=== PATIENT | male | born 1965 | race Caucasian/White ===

== ENCOUNTER → 2016-05-21 | Outpatient (CLI) | payer OTHER ==
[~2016-05-21] MED LIST: MELO7.5T5 PO; OXYC-106 PO; PRLSR20 PO; TIZA4CAP PO
--- NOTE | 2016-05-21 14:17 | DIAGNOSTIC IMAGING REPORT ---
THORACIC SPINE 3 VIEWS ROUTINE CLINICAL HISTORY: THORACIC BACK PAIN COMPARISON STUDY: 05/20/2015 FINDINGS: There is a minimal spinal curvature. The paraspinal line is not displaced. There are mild multilevel degenerative changes. No fractures subluxations or destructive lesions are visualized. There are postsurgical changes in cervical spine. IMPRESSION: Mild multilevel degenerative change. No fractures subluxations or destructive lesions are visualized Electronically signed by: Frank Kunz M.D. 05/21/2016 2:15 PM Dictated Date/Time: 05/21/2016 2:14 PM
== END | disposition home or self-care (01) ==
LOC: C.RADBC 13:37
PROVIDERS: ATTEND Anesthesiology
DX: M54.6 Pain in thoracic spine (principal)

== ENCOUNTER 2018-12-12 05:50 | Observation (INO) ==
[2018-11-23 12:05] LABS: Basophils # (auto) 0.07 K/uL (0-0.2); Basophils % (auto) 0.6 %; Eosinophils # (auto) 0.23 K/uL (0-0.5); Eosinophils % (auto) 1.9 %; Hematocrit (blood only) 42.9 % (42-52); Hemoglobin 14.3 g/dL (14.0-18.0); Immature Granulocytes # (auto) 0.12 K/uL (0.00-0.02); Lymphocytes # (auto) 4.21 K/uL (1.2-3.4); Lymphocytes % (auto) 34.7 %; Mean Corpuscular Hemoglobin 32.2 pg (25-34); Mean Corpuscular Hgb Conc 33.3 g/dL (32-36); Mean Corpuscular Volume 96.6 fL (80-100); Mean Platelet Volume 9.5 fL (7.4-10.4); Monocytes # (auto) 1.38 K/uL (0.11-0.59); Monocytes % (auto) 11.4 %; Neutrophils # (auto) 6.12 K/uL (1.4-6.5); Neutrophils % (auto) 50.4 %; Platelet Count 389 K/uL (130-400); RDW Coefficient of Variation 13.2 % (11.5-14.5); RDW Standard Deviation 46.1 fL (36.4-46.3); Red Blood Count 4.44 M/uL (4.7-6.1); White Blood Count 12.13 K/uL (4.8-10.8)
[2018-11-23 12:20] LABS: Partial Thromboplastin Ratio 0.9; Partial Thromboplastin Time 25.7 Seconds (21.0-31.0); Prothrombin Time 10.1 Seconds (9.0-12.0)
[2018-11-23 12:49] LABS: BUN Creatinine Ratio 18.2 (10-20); Blood Urea Nitrogen 15 mg/dl (7-18); Calcium 9.3 mg/dl (8.5-10.1); Carbon Dioxide 27 mmol/L (21-32); Chloride 107 mmol/L (98-107); Est GFR (African American) 115.9; Glucose 90 mg/dl (70-99); Sodium 140 mmol/L (136-145)
--- NOTE | 2018-11-24 13:53 | Anesthesiology Consultation ---
Date of Service November 24, 2018 Assessment & Plan (1) Encounter for pre-operative examination: Chart Review Chart Review: Acceptable Risk for Surgery and Patient NOT seen in Pre Admission Testing History Surgery Operation Date: 12/12/18 07:30 Proposed Procedures p C6-C7 Anterior Cervical Discectomy and Fusion with Iliac Crest Bone Graft - Rosalio Bonilla DO Height/Weight Height: 5 ft 7 in Weight: 65.771 kg Allergies Allergy/AdvReac Type Severity Reaction Status Date / Time nkda Allergy Unknown None Uncoded 11/24/18 12:31 Medications Home Medications Medication Instructions Recorded Confirmed Last Taken meloxicam 15 mg tablet 15 mg PO QAM 10/05/18 11/24/18 Unknown omeprazole magnesium 20 mg 20 mg PO QAM 10/05/18 11/24/18 Unknown tablet,delayed release oxycodone-acetaminophen 10 mg-325 1 tab PO Q4H PRN 10/05/18 11/24/18 Unknown mg tablet tizanidine 4 mg capsule 4 mg PO DAILY PRN cap 10/05/18 11/24/18 Unknown sumatriptan succinate [Imitrex] 100 mg PO UD PRN 11/24/18 11/24/18 Unknown Past Medical History Medical History Cervical facet syndrome Lumbar radiculopathy Acid reflux disease Degenerative disc disease History of migraine headaches Osteoarthritis Scoliosis Spinal stenosis Past Family History Family History Father No problems noted. Mother No problems noted. Past Surgical History Surgical History History of ankle surgery Right; HARDWARE PRESENT History of fusion of cervical spine C5-6; RESTRICTED MVMT LEFT SIDE History of colonoscopy History of repair of left rotator cuff LT History of repair of pectoralis muscle tear RT History of toe surgery RT GREAT TOE History of tonsillectomy History of tooth extraction STOP BANG Total 2 Social History Smoking Status: Current every day smoker tobacco type: cigarettes Smoking cigarettes per day: 1 PPD Do You Dip or Chew Tobacco: No Hx Alcohol Use: No Hx Substance Use: No substance use type: does not use Testing Laboratory Results 11/23/18 10:07 11/23/18 10:07 PT 10.1 Seconds (9.0-12.0) 11/23/18 10:07 INR 1.0 (0.9-1.1) 11/23/18 10:07 APTT 25.7 Seconds (21.0-31.0) 11/23/18 10:07 *Surgeon aware elevated WBC* Electrocardiogram Date: 11/23/18 SB at 56bpm. Chest X-Ray Date: 11/23/18 Findings: + NAD Atherosclerosis of the aortic arch.
--- NOTE | 2018-12-09 11:24 | History and Physical Report ---
DATE OF ADMISSION: 12/12/2018 CHIEF COMPLAINT: Neck pain, upper back pain, shoulder and arm pain, paresthesias and a working diagnosis of an incompetent cervical segment and disk herniation C6-C7. He is here for an anterior cervical discectomy and fusion with iliac crest bone graft C6-C7 cervical spine. PAST MEDICAL HISTORY: Positive for rheumatoid arthritis. No hypertension, COPD, cancer. PAST SURGICAL HISTORY: Neck surgery, shoulder surgery, ankle surgery. ALLERGIES: Negative. SOCIAL HISTORY: . No alcohol. Moderate tobacco. Moderately active. Currently not working. REVIEW OF SYSTEMS: Twelve system review is negative for fevers, sweats, chills. Ears, nose, and throat negative. Denies chest pain, palpitations. No asthma, wheezing, shortness of breath. No nausea, vomiting. He has joint pain, stiffness and cramping. MEDICATIONS: Include meloxicam, oxycodone, propranolol and Imitrex. OBJECTIVE: GENERAL: He is 53. He is 5 feet 7 inches, 150. He is in no terrible distress other than the cervical spine. VITAL SIGNS: Blood pressure 130/80, pulse 80, respirations 16. HEENT: Pupils react to light and accommodation. Ear, nose and throat clear. CARDIAC: Normal S1, S2. No S3. LUNGS: Clear. ABDOMEN: Soft, nontender. MUSCULOSKELETAL: He has decreased range of motion, flexion ____ cervical spine. Pain with rotation. Positive Spurling maneuver and associated triceps weakness. ASSESSMENT: Includes cervical incompetence and cord compression at C6-C7 with degenerative changes. PLAN: Includes an ACDF of cervical spine with iliac crest bone graft.
[2018-12-12] MEDS ORDERED: CEFAZOLIN 2000MG 2,000 MG/15 ML SYR IV SCH (06:00)
[2018-12-12] MEDS ORDERED: LR 15ML/HR IV SCH (06:00)
[2018-12-12] MEDS ORDERED: SODIUM CHLORIDE 0.9% 1,000 ML IV SCH (06:00)
[2018-12-12] MEDS ORDERED: PROPOFOL IV EMULSION 10 MG/ML 20 ML VIAL IV ONE (06:49)
[2018-12-12] MEDS ORDERED: ROCURONIUM BROMIDE 10 MG/ML 5 ML VIAL ONE (06:49)
[2018-12-12] MEDS ORDERED: LARYING-O-JET KIT (LTA) ONE (06:49)
[2018-12-12] MEDS ORDERED: DEXAMETHASONE SOD INJ 4 MG/ML VIAL ONE (06:49)
[2018-12-12] MEDS ORDERED: HYDROmorphone INJ 2 MG/ML SYR/VIAL ONE (06:49)
[2018-12-12] MEDS ORDERED: LIDOCAINE HCL 2% 2 ML VIAL/AMP(20MG/ML) INFIL ONE (06:49)
[2018-12-12] MEDS ORDERED: ONDANSETRON INJ 2 MG/ML 2 ML VIAL ONE (06:49)
[2018-12-12] MEDS ORDERED: MIDAZOLAM HCL 1 MG/ML 2ML VIAL ONE ×2 (06:49→10:00)
[2018-12-12] MEDS ORDERED: BUPIVACAINE/EPINEPHRINE 0.5% MPF 1:200,000 30 ML VIAL ONE (06:55)
[2018-12-12] MEDS ORDERED: BACITRACIN INJ 50,000 UNIT VIAL ONE (06:56)
[2018-12-12] MEDS ORDERED: GELATIN SPONGE SZ 100 ONE (06:56)
[2018-12-12] MEDS ORDERED: THROMBIN FOR SOLN 20000 UNIT KIT ONE (06:56)
--- NOTE | 2018-12-12 07:15 | History & Physical Bridge Note ---
Date of Service December 12, 2018 History & Physical Bridge Note I have examined the patient, reviewed the History & Physical and in the interval since the performance of the History & Physical I have noted the following changes of clinical significance: no changes noted
[2018-12-12] MEDS ORDERED: ATROPINE SULFATE 0.1 MG/ML 10ML SYR IV PRN ×2 (07:24→07:29)
[2018-12-12] MEDS ORDERED: ePHEDrine sulfate 50 MG/ML AMP IV PRN ×2 (07:24→07:29)
[2018-12-12] MEDS ORDERED: NEOSTIGMINE METHYLSULFATE 5 MG/5 ML SYR ONE (08:13)
[2018-12-12] MEDS ORDERED: GLYCOPYRROLATE 0.2 MG/ML VIAL ONE (08:13)
--- NOTE | 2018-12-12 08:58 | Post Operative Brief Note ---
PG Immediate Post Op with CF Date of Surgery December 12, 2018 Pre & Post Diagnosis Operation Date: 12/12/18 07:30 Pre-Op Diagnosis: CERVICAL DISC HERNIATION Post-Op Diagnosis: CERVICAL DISC HERNIATION Procedure Operation Date: 12/12/18 07:30 Actual Procedures p C6-C7 Anterior Cervical Discectomy and Fusion with Iliac Crest Bone Graft(Not Applicable) - Rosalio Bonilla DO Surgeon Rosalio Bonilla DO [employer] Merchant trae Estimated Blood Loss 10 Findings Consistent with Post-Op Diagnosis Specimens Specimen Description: NONE PER SURGEON Drains Dyer Drain Overlapping Procedure I was immediately available: during the entire case.
--- NOTE | 2018-12-12 09:02 | Fluoroscopy Report ---
Cervical SPINE, INTRAOPERATIVE FLUOROSCOPY HISTORY: C6-C7 ACDF. FLUOROSCOPY TIME: 6 seconds. FINDINGS: Intraoperative fluoroscopy was provided for the cervical spine. Single fluoroscopic spot im ages demonstrate anterior cervical discectomy and fusion at C6-C7. There is also a disc space at C5-C 6. The hardware appears intact. IMPRESSION: Fluoroscopy provided for a C6-C7 ACDF. Electronically signed by: Rod Graham M.D. 12/12/2018 9:01 AM
[2018-12-12] MEDS: HYDROmorphone INJ 2 MG/ML SYR/VIAL IV PRN ×4 (09:20→09:45)
[2018-12-12] MEDS ORDERED: MIDAZOLAM HCL 5 MG/ML 1 ML VIAL IV STA (10:03)
--- NOTE | 2018-12-12 10:07 | Anesthesiology Progress Note ---
Date of Service December 12, 2018 Anesthesia Post Procedure Vital Signs Vital Signs: Temp Pulse Pulse Pulse Resp BP BP 12/12/18 09:46 68 14 12/12/18 09:45 71 18 121/80 12/12/18 09:41 73 13 12/12/18 09:40 73 14 138/83 12/12/18 09:37 69 14 127/80 12/12/18 09:35 81 25 H 12/12/18 09:31 77 21 12/12/18 09:30 74 16 140/92 12/12/18 09:26 77 21 12/12/18 09:25 79 20 152/91 H 12/12/18 09:22 79 15 140/87 12/12/18 09:20 76 16 12/12/18 09:16 72 17 12/12/18 09:15 71 17 135/83 12/12/18 09:11 73 18 12/12/18 09:10 69 12 125/82 12/12/18 09:09 36.7 C 72 73 19 122/84 12/12/18 06:33 36.5 C 63 20 120/81 Pulse Ox 12/12/18 09:46 99 12/12/18 09:45 100 12/12/18 09:41 99 12/12/18 09:40 99 12/12/18 09:37 99 12/12/18 09:35 100 12/12/18 09:31 99 12/12/18 09:30 100 12/12/18 09:26 100 12/12/18 09:25 100 12/12/18 09:22 100 12/12/18 09:20 100 12/12/18 09:16 100 12/12/18 09:15 100 12/12/18 09:11 100 12/12/18 09:10 100 12/12/18 09:09 100 12/12/18 06:33 96 Pain Intensity Bilateral Posterior Neck: Pain Intensity: 8 Right Shoulder: Pain Intensity: 7 Anterior Neck: Pain Intensity: 10 Transfer of Care Handoff Completed per policy Notes Mental Status: alert / awake / arousable Patient Amnestic to Procedure: Yes Nausea / Vomiting: adequately controlled Pain: adequately controlled Airway Patency, RR, SpO2: stable & adequate BP & HR: stable & adequate Hydration State: stable & adequate Anesthetic Complications: no major complications apparent and Pt Satisfied with anesthetic care
--- NOTE | 2018-12-12 10:11 | Operative Report ---
DATE OF OPERATION: 12/12/2018 PREOPERATIVE DIAGNOSIS: Cord compression, degenerative changes, C6-C7 cervical spine. POSTOPERATIVE DIAGNOSIS: Cord compression, degenerative changes, C6-C7 cervical spine. PROCEDURE: Single level anterior cervical discectomy and fusion with left iliac crest bone graft, cervical spine C6-C7. SURGEON: Rosalio Bonilla DO PROCESS MAINTENANCE TECHNICIAN: Paul Escobedo PA-C. DESCRIPTION OF PROCEDURE: The patient was identified in the preop holding area and marked as well. Bridge note provided. Safely brought back to the operating room, general intubated anesthetic provided to the patient, kept supine, prepped and draped sterile on the operative frame. We made a transverse skin incision over the C6-C7 cervical spine. We readily came down on the C6-C7 interval. We marked this with a cross table lateral radiograph. We did a formal anterior cervical discectomy back to the spinal cord, foraminotomies, partial facetectomies provided. We evacuated completely the disc issue. We then went to the iliac crest, made a skin incision, fascial incision, harvested a piece of autograft and measured 7 mm in height, approximately 60 mm in depth, and 13 mm left to right. This was placed into the vacated discectomy site at the C6-C7, anterior plate placed 14 mm as well with the [employer]. It fit perfectly, lateral radiographs looked in excellent position. We irrigated and closed each area in layers. Sterile dressings applied. The patient extubated to PACU stable. ESTIMATED BLOOD LOSS: Less than 10 mL. IMPLANTS USED: By the [employer]. Bone graft used was structural autograft. COMPLICATIONS: No complications. I attest to the content of the Intraoperative Record and any orders documented therein. Any exception s are noted below.
[2018-12-12] MEDS ORDERED: RACEPINEPHRINE 2.25% NEBU SOLN 0.5 ML VIAL INH PRN (11:00)
[2018-12-12] MEDS ORDERED: TIZANIDINE HCL 4 MG TABLET PO PRN (11:00)
[2018-12-12] MEDS ORDERED: ACETAMINOPHEN 1,000 MG/100 ML VIAL IV PRN (11:00)
[2018-12-12] MEDS ORDERED: ONDANSETRON INJ 2 MG/ML 2 ML VIAL IV PRN (11:00)
[2018-12-12] MEDS ORDERED: LORazepam 0.5 MG/1 ML VIAL IV PRN (11:00)
[2018-12-12] MEDS ORDERED: SUMAtriptan succinate 100 MG TAB PO PRN ×2 (11:00→15:46)
[2018-12-12] MEDS ORDERED: NALOXONE HCL 0.4 MG/1 ML VIAL/CARP IV PRN (11:00)
[2018-12-12] MEDS ORDERED: MAGNESIUM HYDROXIDE SUSP 30 ML UDC PO PRN (11:00)
[2018-12-12] MEDS ORDERED: DEXAMETHASONE SOD PHOSPHATE 8 MG in SYRINGE 0 ML IV PRN (11:00)
[2018-12-12] MEDS: SODIUM CHLORIDE 0.9% 1000ML 1,000 ML IV SCH ×2 (11:16→22:31)
[2018-12-12] MEDS: HYDROmorphone INJ 0.5 MG/0.5 ML SYR IV PRN ×3 (11:24→22:31)
--- NOTE | 2018-12-12 14:34 | Orthopedic Consultation ---
Date of Consultation December 12, 2018 History of Present Illness Attending Physician: Rosalio Bonilla DO Allergies Allergy/AdvReac Type Severity Reaction Status Date / Time yellow jackets Allergy Severe Anaphylaxis Uncoded 12/12/18 06:15 nkda Allergy Unknown None Uncoded 12/12/18 06:15 Home Medications Home Medications Medication Instructions Recorded Confirmed Type meloxicam 15 mg tablet 15 mg PO QAM 10/05/18 12/12/18 History omeprazole magnesium 20 mg 20 mg PO QAM 10/05/18 12/12/18 History tablet,delayed release oxycodone-acetaminophen 10 mg-325 1 tab PO Q4H PRN 10/05/18 12/12/18 History mg tablet tizanidine 4 mg capsule 4 mg PO DAILY PRN cap 10/05/18 12/12/18 History sumatriptan succinate [Imitrex] 100 mg PO UD PRN 11/24/18 12/12/18 History Patient History Medical History Cervical facet syndrome Lumbar radiculopathy Acid reflux disease Degenerative disc disease History of migraine headaches Osteoarthritis Scoliosis Spinal stenosis Surgical History History of ankle surgery Right; HARDWARE PRESENT History of fusion of cervical spine C5-6; RESTRICTED MVMT LEFT SIDE History of amputation (Acute) partial left pointer finger History of colonoscopy History of repair of left rotator cuff LT History of repair of pectoralis muscle tear RT History of toe surgery RT GREAT TOE History of tonsillectomy History of tooth extraction Family History Father No problems noted. Mother No problems noted. Social History Preferred Language: Maori Communication Ability: Effective Insurance Auditor Required: No Beliefs That Will Affect Care: None marital status: Current Living Situation: Spouse current occupational status: other current occupation: self employed Other Information That Helps Us Care for You: No Feels Safe at Home: Yes Safety Concerns: Feels Safe At This Time Smoking Status: Current every day smoker Tobacco Type: cigarettes ; packs per day: 1 ; Cigarettes Per Day: 1 PPD ; Do You Dip or Chew Tobacco: No ; Second Hand Exposure: No ; Tobacco Cessation Education Requested by Patient: No Hx Alcohol Use: No Hx Substance Use: No Review of Systems Review of Systems: [] use f4 to go to next []. Eyes: no decreased night vision, no loss of peripheral vision and no spots in vision Results & Data Vital Signs (Past 12 Hours) Vital Signs Temp Pulse Pulse Pulse Resp BP BP 12/12/18 13:45 36.7 C 65 16 118/75 12/12/18 12:45 36.7 C 64 18 118/76 12/12/18 11:45 36.8 C 62 18 118/70 12/12/18 11:29 82 18 12/12/18 11:10 68 18 111/72 12/12/18 10:45 36.7 C 76 16 114/77 12/12/18 10:38 37.4 C 12/12/18 10:31 68 16 12/12/18 10:30 70 14 112/77 12/12/18 10:26 74 16 12/12/18 10:25 70 15 106/69 12/12/18 10:21 77 13 12/12/18 10:20 67 13 111/70 12/12/18 10:16 74 12 12/12/18 10:15 68 17 123/80 12/12/18 10:11 74 14 12/12/18 10:10 72 27 H 119/80 12/12/18 10:06 71 16 12/12/18 10:05 67 14 124/81 12/12/18 10:01 65 14 12/12/18 10:00 66 13 130/81 12/12/18 09:56 78 20 12/12/18 09:55 69 14 122/84 12/12/18 09:51 70 16 12/12/18 09:50 70 16 114/78 12/12/18 09:46 68 14 12/12/18 09:45 71 18 121/80 12/12/18 09:41 73 13 12/12/18 09:40 73 14 138/83 12/12/18 09:37 69 14 127/80 12/12/18 09:35 81 25 H 12/12/18 09:31 77 21 12/12/18 09:30 74 16 140/92 12/12/18 09:26 77 21 12/12/18 09:25 79 20 152/91 H 12/12/18 09:22 79 15 140/87 12/12/18 09:20 76 16 12/12/18 09:16 72 17 12/12/18 09:15 71 17 135/83 12/12/18 09:11 73 18 12/12/18 09:10 69 12 125/82 12/12/18 09:09 36.7 C 72 73 19 122/84 12/12/18 06:33 36.5 C 63 20 120/81 Pulse Ox Pulse Ox 12/12/18 13:45 96 12/12/18 12:45 96 12/12/18 11:45 96 12/12/18 11:29 99 12/12/18 11:10 95 12/12/18 10:45 93 93 12/12/18 10:38 96 12/12/18 10:31 97 12/12/18 10:30 96 12/12/18 10:26 96 12/12/18 10:25 98 12/12/18 10:21 97 12/12/18 10:20 97 12/12/18 10:16 95 12/12/18 10:15 96 12/12/18 10:11 96 12/12/18 10:10 95 12/12/18 10:06 95 12/12/18 10:05 97 12/12/18 10:01 97 12/12/18 10:00 97 12/12/18 09:56 98 12/12/18 09:55 98 12/12/18 09:51 98 12/12/18 09:50 98 12/12/18 09:46 99 12/12/18 09:45 100 12/12/18 09:41 99 12/12/18 09:40 99 12/12/18 09:37 99 12/12/18 09:35 100 12/12/18 09:31 99 12/12/18 09:30 100 12/12/18 09:26 100 12/12/18 09:25 100 12/12/18 09:22 100 12/12/18 09:20 100 12/12/18 09:16 100 12/12/18 09:15 100 12/12/18 09:11 100 12/12/18 09:10 100 12/12/18 09:09 100 12/12/18 06:33 96 PG Care Time/CCT Total # of Minutes Spent Total Time Spent with Patient: Total time spent is greater than 50% in coordination of care (as documented) at patient's floor/unit and/or counseling patient:
[2018-12-12] MEDS: CEFAZOLIN 2000MG 2,000 MG/15 ML SYR IV SCH (16:14)
[2018-12-12] MEDS: OXYCODONE HCL IR 5 MG TAB (IMMEDIATE RELEASE) PO PRN (18:54)
[2018-12-12] MEDS: DOCUSATE SODIUM 100 MG CAP PO SCH (21:19)
[2018-12-13] MEDS: CEFAZOLIN 2000MG 2,000 MG/15 ML SYR IV SCH ×2 (00:46→07:45)
[2018-12-13] MEDS: OXYCODONE HCL IR 5 MG TAB (IMMEDIATE RELEASE) PO PRN ×2 (03:01→08:50)
[2018-12-13] MEDS: DOCUSATE SODIUM 100 MG CAP PO SCH (07:45)
--- NOTE | 2018-12-13 08:17 | Anesthesiology Progress Note ---
Date of Service December 13, 2018 Anesthesia Post Procedure Vital Signs Vital Signs: Temp Pulse Pulse Pulse Pulse Resp BP 12/13/18 07:34 36.8 C 72 16 12/13/18 07:00 72 16 12/13/18 06:45 36.8 C 76 16 12/13/18 04:45 37.0 C 76 16 12/13/18 03:15 78 18 12/13/18 02:45 36.8 C 72 16 12/13/18 00:45 37.1 C 75 16 12/12/18 23:30 73 18 12/12/18 22:32 36.8 C 65 16 12/12/18 20:50 36.9 C 68 16 12/12/18 20:25 73 18 12/12/18 18:50 36.8 C 65 18 12/12/18 16:45 36.9 C 70 18 12/12/18 15:43 63 19 12/12/18 14:45 36.7 C 62 16 12/12/18 13:45 36.7 C 65 16 12/12/18 12:45 36.7 C 64 18 12/12/18 11:45 36.8 C 62 18 12/12/18 11:29 82 18 12/12/18 11:10 68 18 12/12/18 10:45 36.7 C 76 16 12/12/18 10:38 37.4 C 12/12/18 10:31 68 16 12/12/18 10:30 70 14 112/77 12/12/18 10:26 74 16 12/12/18 10:25 70 15 106/69 12/12/18 10:21 77 13 12/12/18 10:20 67 13 111/70 12/12/18 10:16 74 12 12/12/18 10:15 68 17 123/80 12/12/18 10:11 74 14 12/12/18 10:10 72 27 H 119/80 12/12/18 10:06 71 16 12/12/18 10:05 67 14 124/81 12/12/18 10:01 65 14 12/12/18 10:00 66 13 130/81 12/12/18 09:56 78 20 12/12/18 09:55 69 14 122/84 12/12/18 09:51 70 16 08/26/19 09:50 70 16 114/78 08/26/19 09:46 68 14 12/12/18 09:45 71 18 121/80 12/12/18 09:41 73 13 12/12/18 09:40 73 14 138/83 12/12/18 09:37 69 14 127/80 12/12/18 09:35 81 25 H 12/12/18 09:31 77 21 12/12/18 09:30 74 16 140/92 12/12/18 09:26 77 21 12/12/18 09:25 79 20 152/91 H 12/12/18 09:22 79 15 140/87 12/12/18 09:20 76 16 12/12/18 09:16 72 17 12/12/18 09:15 71 17 135/83 12/12/18 09:11 73 18 12/12/18 09:10 69 12 125/82 12/12/18 09:09 36.7 C 72 73 19 BP Pulse Ox Pulse Ox 12/13/18 07:34 122/78 93 12/13/18 07:00 93 12/13/18 06:45 122/78 94 12/13/18 04:45 116/76 95 12/13/18 03:15 94 12/13/18 02:45 126/76 96 12/13/18 00:45 116/73 94 12/12/18 23:30 96 12/12/18 22:32 123/72 95 12/12/18 20:50 122/75 94 12/12/18 20:25 96 12/12/18 18:50 125/78 95 12/12/18 16:45 125/74 96 12/12/18 15:43 96 12/12/18 14:45 122/80 96 12/12/18 13:45 118/75 96 12/12/18 12:45 118/76 96 12/12/18 11:45 118/70 96 12/12/18 11:29 99 12/12/18 11:10 111/72 95 12/12/18 10:45 114/77 93 93 12/12/18 10:38 96 12/12/18 10:31 97 12/12/18 10:30 96 12/12/18 10:26 96 12/12/18 10:25 98 12/12/18 10:21 97 12/12/18 10:20 97 12/12/18 10:16 95 12/12/18 10:15 96 12/12/18 10:11 96 12/12/18 10:10 95 12/12/18 10:06 95 12/12/18 10:05 97 12/12/18 10:01 97 12/12/18 10:00 97 12/12/18 09:56 98 12/12/18 09:55 98 12/12/18 09:51 98 12/12/18 09:50 98 12/12/18 09:46 99 12/12/18 09:45 100 12/12/18 09:41 99 12/12/18 09:40 99 12/12/18 09:37 99 12/12/18 09:35 100 12/12/18 09:31 99 12/12/18 09:30 100 12/12/18 09:26 100 12/12/18 09:25 100 12/12/18 09:22 100 12/12/18 09:20 100 12/12/18 09:16 100 12/12/18 09:15 100 12/12/18 09:11 100 12/12/18 09:10 100 12/12/18 09:09 122/84 100 Pain Intensity Bilateral Posterior Neck: Pain Intensity: 8 Right Shoulder: Pain Intensity: 7 Anterior Neck: Pain Intensity: 7 Left Hip: Pain Intensity: 3 Notes Mental Status: alert / awake / arousable and participated in evaluation Patient Amnestic to Procedure: Yes Nausea / Vomiting: adequately controlled Pain: adequately controlled Airway Patency, RR, SpO2: stable & adequate BP & HR: stable & adequate Hydration State: stable & adequate Anesthetic Complications: no major complications apparent and Pt Satisfied with anesthetic care
[2018-12-13] MEDS ORDERED: PANTOprazole 40 MG TAB PO SCH (09:00)
--- NOTE | 2018-12-13 22:19 | Discharge Summary ---
SUBJECTIVE: Osman is visited on rounds this morning and last evening. He is approximately 22 hours postop. He is doing well, uneventful stay. OBJECTIVE: Wound clean, dry. Afebrile. No chest pain, shortness of breath or dysphasia. ASSESSMENT: Status post single level ACDF cervical spine, doing well, short run. PLAN: Instructions, precautions. Dressing change, discharged home. He was given instructions at the hospital. We will see him back in 10 days.
[2018-12-14] MEDS ORDERED: BISACODYL 5 MG TABEC PO PRN (09:12)
== END 2018-12-13 10:27 | disposition home or self-care (01) ==
LOC: 3E 05:50 → ASU 05:50